=== PATIENT | male | born 1950 | race Caucasian/White ===

== ENCOUNTER 2018-04-26 05:09 | Observation (INO) ==
[2018-04-19 10:00] LABS: HEMATOCRIT 46.1 % (42.0-52.0); HEMOGLOBIN 15.2 g/dL (14.0-18.0); MCH 30.6 PG (27-31); MCV 92.9 FL (81-99); MPV 11.1 FL (7.4-10.4); RBC 4.96 XMIL (4.7-6.1); RDW 12.2 % (11.5-14.5); WBC 8.13 X1000 (4.8-10.8)
[2018-04-19 10:03] LABS: INR 0.95; PROTIME 13.5 Seconds (11.0-16.0)
[2018-04-19 10:04] LABS: PTT 27.3 Seconds (22.3-41.8)
[2018-04-19 10:19] LABS: AGAP 15; BUN 15 mg/dL (8-22); CHLORIDE 103 mmol/L (98-107); COSMO 289; CREATININE 0.9 mg/dL (0.7-1.2); ESTIMATED GFR > 60; GLUCOSE 256 mg/dL (70-104); POTASSIUM 4.4 mmol/L (3.5-5.1); SODIUM 140 mmol/L (136-145); TCO2 22 mmol/L (25-35)
[2018-04-26] MEDS ORDERED: KEFZOL 1 GM/D5W 2 GM/100 ML IVPB ONE (05:36)
[2018-04-26] MEDS ORDERED: PEPCID ONE (05:36)
[2018-04-26] MEDS ORDERED: REGLAN ONE (05:36)
[2018-04-26] MEDS ORDERED: LR 1,000 ML ONE ×3 (05:37→14:16)
[2018-04-26] MEDS ORDERED: SENSORCAINE-MPF 0.5%/EPI 1:200,000 ONE (06:33)
[2018-04-26] MEDS ORDERED: DIPRIVAN 1% ONE (06:33)
[2018-04-26] MEDS ORDERED: B & O 16A SUPP ONE (06:33)
[2018-04-26] MEDS ORDERED: XYLOCAINE-MPF 2% ONE (07:03)
[2018-04-26] MEDS ORDERED: ZEMURON ONE ×2 (07:03→07:39)
[2018-04-26] MEDS ORDERED: BREVIBLOC ONE (07:03)
[2018-04-26] MEDS ORDERED: FENTANYL ONE ×2 (07:10→13:01)
[2018-04-26] MEDS ORDERED: LABETALOL (DOSE) ONE (07:39)
[2018-04-26 07:44] LABS: URINE SOURCE CATH
[2018-04-26 07:47] LABS: BILIRUBIN URINE NEGATIVE (NEGATIVE); BLOOD URINE NEGATIVE (NEGATIVE); COLOR YELLOW; GLUCOSE URINE 500 mg/dL (NEGATIVE); KETONE URINE NEGATIVE (NEGATIVE); LEUKOCYTES URINE NEGATIVE (NEGATIVE); NITRITE URINE NEGATIVE (NEGATIVE); PROTEIN URINE NEGATIVE (NEGATIVE); TURBIDITY URINE CLEAR (CLEAR); UR EPITHELIAL CELLS <10 /HPF (<10); URINE BACTERIA NEGATIVE /HPF; URINE RBC <10 /HPF (<10); URINE WBC <10 /HPF (<10); UROBILINOGEN URINE NORMAL (NORMAL)
[2018-04-26] MEDS ORDERED: EPHEDRINE ONE (11:22)
[2018-04-26] MEDS ORDERED: ZOFRAN ONE (11:31)
[2018-04-26] MEDS ORDERED: HUMULIN R SUBQ ONE (14:00)
[2018-04-26] MEDS ORDERED: ZOFRAN IV PRN (15:15)
[2018-04-26] MEDS ORDERED: LABETALOL IV PRN (15:15)
[2018-04-26] MEDS: HUMULIN R SUBQ SCH ×2 (16:53→21:47)
[2018-04-26] MEDS: KEFZOL 1 GM/D5W 1 GM/50 ML IVPB IV SCH (16:55)
[2018-04-26] MEDS: LR 1,000 ML IV SCH (16:56)
[2018-04-26] MEDS: MORPHINE IV PRN (18:50)
[2018-04-26] MEDS: ZOCOR PO SCH (21:46)
[2018-04-26] MEDS: PERIDEX MT SCH (21:46)
[2018-04-26] MEDS: COLACE PO SCH (21:46)
[2018-04-27] MEDS: KEFZOL 1 GM/D5W 1 GM/50 ML IVPB IV SCH ×2 (00:32→09:03)
[2018-04-27] MEDS: MORPHINE IV PRN ×4 (00:32→19:57)
[2018-04-27] MEDS: NORCO-7.5 PO PRN ×2 (03:11→12:01)
[2018-04-27] MEDS: LR 1,000 ML IV SCH ×2 (03:16→21:20)
--- NOTE | 2018-04-27 04:01 | OPERATIVE NOTE ---
PROCEDURE DATE: 04/26/2018 PREOPERATIVE DIAGNOSES: 1. Elevated prostate-specific antigen. 2. Prostate cancer. POSTOPERATIVE DIAGNOSES: 1. Elevated prostate-specific antigen. 2. Prostate cancer. PROCEDURES PERFORMED: 1. Robotic-assisted laparoscopic prostatectomy. 2. Bilateral pelvic lymph node dissection. 3. Laparoscopic urethral suspension. SURGEON: Dr. Daryl Christiansen. VALUE ENGINEER: Dr. Fredrick Johnston. COMPLICATIONS: None. BLOOD LOSS: 200 mL. DRAINS: 1. An 18-Faroese Cheney catheter. 2. A 19 round drain. SPECIMENS REMOVED: 1. Prostate. 2. Seminal vesicles. 3. Vas deferens. 4. Fat overlying the prostate. 5. Bilateral pelvic lymph nodes. OPERATIVE FINDINGS: The patient had a significant amount of intra-abdominal fat and a relatively small prostate of approximately 20 g. It was difficult to dissect this out due to his pelvic bony anatomy and overlying colonic fat. However, I was able to remove the prostate, seminal vesicles, and vas deferens without issue. Apparently, a preoperative STEVEN did show a firm left-sided prostate. No evidence of any obvious extraprostatic involvement. The patient had bilateral pelvic lymph node dissection with a large amount of specimen sent for analysis. Had a difficult vesicourethral anastomosis, we did have a leak from the right lateral portion of the anastomosis that required placement of a 3-0 V Lock suture for closure. Bladder was recheck with sterile irrigant with no evidence of leak after closure. INDICATIONS FOR PROCEDURE: Mr. Alvarez is a 67-year-old who initially presented to the [facility] after he was diagnosed with a prostatic nodule. The patient was undergoing a colonoscopy and he was found to have a slightly firm area in his prostate. He was examined in the office and found to have a nodule present. He underwent a biopsy and had multiple cores of intermediate and high risk prostate cancer, all present on the left side of the prostate. The patient was counseled on the treatment options and patient elected to proceed with robotic- assisted prostatectomy. He was counseled on the long-term risks of incontinence, erectile dysfunction, bleeding, infection, damage to surrounding structures, prolonged ileus, as well as pain. The risks, benefits, and alternatives of the procedure were discussed with the patient. The patient elected to proceed. DESCRIPTION OF PROCEDURE: After informed consent was obtained, the patient was brought to the operating room and placed on the operating table in the supine position. He received preoperative antibiotics and underwent general anesthesia. He was then placed into a dorsal lithotomy position. He was prepped and draped in the usual sterile fashion. All pressure points were supported and his arms were tucked for stability, at which time a preoperative time-out was performed with all parties in agreement including anesthesia, surgical and nursing staff, at which time an 18-Faroese Cheney catheter was then introduced, returning clear yellow urine, and inflated with 10 mL of sterile water and placed to gravity drainage. A Veress needle was then placed superior to the umbilicus and was connected to a saline-filled syringe to perform a drop test with good flow into the abdomen. There was aspiration of fluid with no evidence of GI contents or blood. This was used to insufflate the abdomen with a pneumoperitoneum of 15 mmHg. Following this, we marked out our trocar sites in a standard prostatectomy fashion. I made an incision in the skin with the scalpel and Bovie electrocautery supraumbilical and introduced a 12 mm trocar, all by inserting the robotic trocars as well as the certified physician's assistant port under laparoscopic visualization. On inspection of the abdomen, it revealed no adhesions and no damage on placement of the trocars or the Veress needle. The patient was then placed into a steep Trendelenburg position and the robotic platform docked. We began by taking down lateral adhesions of the colon to the left lateral pelvic sidewall. Following this, we incised approximately 2 cm above the rectum and into the peritoneum in order to try to identify and isolate the vas deferens. The patient had a significant amount of perirectal and sigmoid colon fat. It was difficult to completely retract back his bowel even with steep Trendelenburg. Ultimately, we tried a fan retractor in the pelvis to see if this would help. However, I was unable to adequately mobilize the colon away. Ultimately, I was able to position our retractors in a way that we could make it down to the vas deferens which was isolated. Cautery was then used judiciously lateral to seminal vesicles in dissection in order to preserve neurovascular bundles both on the right side. A similar type procedure was performed on the left. After complete dissection of the vas deferens and the vessels bilaterally, attention was placed posterior to seminal vesicles and the Denonvilliers was excised until we were able to get down to the perirectal tissues in order to dissect posterior along the plane toward the apex. Once adequate dissection was performed, attention was then placed to the anterior abdominal wall and dropping in the bladder. The medial umbilical ligaments were then cauterized and each side of the bladder was then dropped in order to access the space of Retzius. Once the bladder was dropped, fat was then cleared off the endopelvic fascia, exposing the prostate. We then incised the endopelvic fascia following the contour of the prostate toward the apex, dissecting off the levator muscle. Following this, a the puboprostatic ligaments were then sharply divided. The superficial dorsal vein was controlled with the bipolar electrocautery. The dorsal vein complex was then controlled with a 0 V-Loc suture in a [id number] fashion in anterior periosteal suturing. After this, attention was then placed to dissecting off the bladder neck. This was identified by gently tugging on the Cheney catheter with the balloon in place. Bipolar cautery was then used to incise the bladder neck. The Cheney catheter was then brought up into the field with our fourth arm. This was used to place some anterior traction on the prostate. Good visualization of the posterior bladder neck and the prostate was then seen. It seems like the largest portion of his prostate was the lateral lobes. No evidence of a median lobe was visualized. Following this, incision of the posterior bladder neck was made circumferentially and the prostate was further elevated anterior with the fourth arm. A plane developed between the prostate and the bladder was undertaken. Ultimately, I was able to visualize the vas deferens and seminal vesicles posteriorly. These were brought up into view and used for retraction. Following this, attention was then placed to the neurovascular bundles which were transected using hemoclips, trying to avoid cautery, to peel off the neurovascular bundles posterolateral on each side. We initially started on the left side. We were able to dissect the prostate away from the neurovascular bundles in the rectum posteriorly. No nerve repair was performed on this side due to high-volume, high-risk prostate cancer. Following this, we then addressed our attention to the right side. We were able to perform an intrafascial nerve spare using hemoclips to dissect away our neurovascular bundles. Good mobility was seen on the lateral and posterior prostate. Then attention was then placed to dissecting the apex. The apex was divided with monopolar cautery sharply and periurethral tissues were then sharply excised. Once the prostate was extracted off the urethra, I was able to perform a small amount of urethral sparing. Due to the patient's apical disease on biopsy, it limited how much of the urethra we were able to adequately mobilize. The urethra was then sharply transected coldly with scissors. Following this, the posterior fascia was then excised sharply to completely dissect away the prostate. The prostate was then freely mobilized and placed into an EndoCatch bag with some of the residual fat overlying the prostate. The field was then irrigated and hemostasis appeared to be excellent. Attention was then placed to performing a bilateral pelvic node dissection. Starting on the right, we were able to excise a significant amount of lymphatic tissue overlying the external and internal iliac arteries and vein. We carried this into the anterior abdominal wall and we were able to remove both the node of Falcon as well as the obturator nerve packet. The obturator nerve, artery and vein were all visualized and appeared to be unaffected. Following this, we completely removed all the tissues off the perivesicular fat and this was sent as a specimen. We then moved to the left side. A similar lymph node dissection was performed, removing the lymphatic tissues overlying the iliac arteries and veins, and carrying this all the way down to the obturator nerve and vessels. Following the lymph node dissection, Surgicel was then placed into each defect to decrease the risk of lymphocele and hematoma formation. Following this, a 3-0 V-Loc suture was then used to try to perform a Toan stitch by approximating the perivesical and periurethral tissues together in a running fashion. It was very difficult to see the bladder neck due to the patient's narrow pelvis and limited space near his pubic bone. I obtained a 30 degree lens and used this to assist in placing the 3-0 V-Loc suture into the periurethral and perivesical tissues. This was completed in a running fashion and saved for later laparoscopic urethral suspension. The 30 degree lens offered good visualization of the vesicourethral anastomosis. This was performed by using two 3-0 running V-Loc sutures in a clockwise and counterclockwise fashion. Eventually, this was across the entirety of the midline. Following this, a new 18-Faroese Cheney catheter was then placed. The anastomosis was tested with 120 mL. There was noticed to be a small leak present on the right side of the anastomosis at which time a 3-0 V-Loc suture was then obtained. This defect was then closed. It was rechecked with 120 mL and was watertight with the suture tying to itself. Following this, we placed our attention to the laparoscopic urethral suspension which was performed by threading the previously placed Toan stitch needles through the pubic periosteum. Good support was obtained on the urethra. Posteriorly, the bladder was then irrigated and good hemostasis was visualized. Pressure was decreased down to 3 mmHg with no evidence of active bleeding. Prior to this, a 19 round Az drain was placed through the right lateral port. The robot was then undocked. We then removed our specimen, extending the suprapubic incision to allow removal of the EndoCatch bag. The wound was then copiously irrigated and a 0 PDS suture was then used to close the supraumbilical incision. A 0 Vicryl was then used to close the fascia of the 12 mm certified physician's assistant trocar. Each of the incisions was then injected with Marcaine for a postprocedure block. The wounds were then irrigated once more and then a 4-0 Monocryl suture was used to close subcuticularly all the incisions. A drain stitch was placed around the drain and this was placed to bulb suction. Next, Covidien adhesive agent was then applied to all the trocar sites. The catheter was then placed to gravity drainage with a StatLock in place. The patient was then extubated and was taken to recovery in stable condition. Dr. Johnston was present for all miranda portions of this procedure and acted as a certified physician's assistant for this procedure. DISPOSITION: The patient will be transferred to the PACU and subsequently to the floor for observation. cc: Daryl Christiansen MD [facility]
[2018-04-27] MEDS: HUMULIN R SUBQ SCH ×4 (05:13→22:53)
[2018-04-27 05:18] LABS: MCH 31.1 PG (27-31); MCHC 32.6 g/dL (33-37); MCV 95.6 FL (81-99); MPV 11.5 FL (7.4-10.4); RBC 4.5 XMIL (4.7-6.1); RDW 12.4 % (11.5-14.5); WBC 12.54 X1000 (4.8-10.8)
[2018-04-27] MEDS: SYNTHROID PO SCH ×2 (05:28→06:12)
[2018-04-27 05:40] LABS: AGAP 14; BUN 13 mg/dL (8-22); CHLORIDE 102 mmol/L (98-107); COSMO 287; CREATININE 0.9 mg/dL (0.7-1.2); ESTIMATED GFR > 60; GLUCOSE 239 mg/dL (70-104); POTASSIUM 4.3 mmol/L (3.5-5.1); SODIUM 140 mmol/L (136-145); TCO2 24 mmol/L (25-35)
[2018-04-27] MEDS: PERIDEX MT SCH ×2 (09:03→20:00)
[2018-04-27] MEDS: COLACE PO SCH ×2 (09:03→19:59)
--- NOTE | 2018-04-27 09:09 | PROGRESS NOTE ---
DATE: 04/27/2018 SUBJECTIVE: Postop day 1 from a robotic-assisted laparoscopic prostatectomy with bilateral pelvic lymph node dissection and urethral suspension. Overall, the patient seems to be doing relatively well. His pain seems to be well controlled on oral pain medication. He was up to the side of the bed this morning. Denies ambulating as of yet. He is having good urine through his urethral catheter and is clear yellow. Denies having flatus, nausea or vomiting. The patient has had minimal p.o. intake mostly just water. OBJECTIVE: Vital signs: Temperature 99.1 degrees, pulse rate 91, blood pressure 102/53. Oxygen saturation 96%. General: No acute distress resting comfortably in bed. Alert and oriented x3. Respiratory: Good respiratory effort with no audible wheezing overall. The patient is wearing nasal cannula on 2 L. Cardiovascular: No evidence of lower extremity edema. No evidence of tachycardia. Abdomen: Soft, nontender, and mild distention. No palpable masses. : No suprapubic tenderness. Urethral catheter in place with clear yellow urine. No evidence of any clots in the chamber. LIDIA drain in place with small amount of serosanguineous fluid. LABORATORY: White blood cell count 12.54, hemoglobin 14, hematocrit 43, and platelets 127,000. Sodium 140, potassium 4.3, chloride 102, bicarb 24, BUN 13, creatinine 0.9, and glucose 239. Fluid LIDIA creatinine 1.0. ASSESSMENT AND PLAN: Mr. Alvarez is a 67-year-old with type 2 diabetes, hypertension, hyperlipidemia, hypothyroidism, who was recently diagnosed with high-grade prostate cancer and is postop day 1 from a robotic-assisted laparoscopic prostatectomy with bilateral pelvic lymph node dissection, and urethral suspension. Overall, the patient seems to be doing relatively well. He has complained a little bit of pain this morning that seems to be managed with oral pain medication. The patient has had minimal p.o. intake. Denies any nausea, vomiting, or sensation of abdominal distention. All of his labs seem to be within normal limits. His LIDIA creatinine was 1.0 this morning. We will plan to remove his LIDIA drain today. Encouraged him to be ambulatory, and up out of bed and tolerating diet as able. I encouraged him to drink fluids and encouraged him to take just oral pain medication if he develops pain. We will continue with oral pain medication and will add Robaxin to see if this helps with his muscle discomfort and continue with Senna and Colace. We will start anticoagulation with heparin t.i.d. Continue his home medications and monitoring for elevated fingerstick blood sugars. Continue urethral catheter to gravity drainage. cc: Daryl Christiansen MD [facility]
[2018-04-27] MEDS: ROBAXIN PO SCH ×3 (10:44→18:56)
[2018-04-27] MEDS: HEPARIN SUBQ SCH ×3 (12:01→20:00)
[2018-04-27] MEDS: SENOKOT PO SCH ×2 (15:22→20:00)
[2018-04-27] MEDS: ZOCOR PO SCH (20:00)
[2018-04-28] MEDS: MORPHINE IV PRN (01:19)
[2018-04-28] MEDS: HUMULIN R SUBQ SCH (04:48)
[2018-04-28] MEDS: HEPARIN SUBQ SCH (04:49)
[2018-04-28 05:50] LABS: HEMATOCRIT 39.8 % (42.0-52.0); HEMOGLOBIN 12.9 g/dL (14.0-18.0); MCH 31.5 PG (27-31); MCHC 32.4 g/dL (33-37); MCV 97.3 FL (81-99); MPV 11.8 FL (7.4-10.4); RBC 4.09 XMIL (4.7-6.1); RDW 12.2 % (11.5-14.5); WBC 10.27 X1000 (4.8-10.8)
[2018-04-28] MEDS: LR 1,000 ML IV SCH (05:56)
[2018-04-28 06:20] LABS: AGAP 12; BUN 10 mg/dL (8-22); CALCIUM 8.8 mg/dL (8.8-10.2); CHLORIDE 102 mmol/L (98-107); COSMO 285; CREATININE 0.8 mg/dL (0.7-1.2); ESTIMATED GFR > 60; GLUCOSE 223 mg/dL (70-104); POTASSIUM 3.7 mmol/L (3.5-5.1); SODIUM 140 mmol/L (136-145); TCO2 26 mmol/L (25-35)
[2018-04-28] MEDS: SYNTHROID PO SCH (06:20)
--- NOTE | 2018-04-28 06:55 | PROGRESS NOTE ---
DATE: 04/28/2018 SUBJECTIVE: Postop Day 2 from a robotic-assisted laparoscopic prostatectomy with bilateral pelvic lymph node dissection and urethral suspension. No acute events overnight. The patient did have some abdominal distention yesterday, but was tolerating a diet. He denies any nausea or vomiting this morning. He states his pain has been better controlled. He has been up to the chair for an hour and a half last night. He denies any fevers or chills and states that he feels like he has been breathing better. Remains on nasal cannula, but this has been weaned to 1.5 L at this time. OBJECTIVE: Temperature 98, heart rate 93, blood pressure 143/85, oxygen saturation 97% on 1.5 L of nasal cannula. General: No acute distress. Resting comfortably in bed. Alert and oriented x3. Respiratory: Good respiratory effort without any audible wheezing or rales. No increased work of breathing. Cardiovascular: No lower extremity edema. Abdomen is soft, nontender, with decreased distention. : No suprapubic tenderness. Urethral catheter in place with clear yellow urine. Skin: All incisions are intact. No evidence of any erythema. Covered with Dermabond. LABORATORY DATA: White blood cell count 10.27, hematocrit 39.8, hemoglobin 12.9 , platelets 103,000. Sodium 140, potassium 3.7, chloride 102, bicarb 26. BUN 10, creatinine 0.8, glucose 223. ASSESSMENT AND PLAN: Mr. Alvarez is a 67-year-old with type 2 diabetes, hypertension, hyperlipidemia, hypothyroidism. He was recently diagnosed with high-grade prostate cancer and is postop day 2 from robotic-assisted laparoscopic prostatectomy with bilateral pelvic lymph node dissection and urethral suspension. Overall, the patient seems to be improving overnight. His pain is better controlled. His respiratory status has improved. He did cough up some sputum this morning early and states that it did not cause any abdominal pain. He was up to the chair for an hour and a half last night. I encouraged him to be ambulatory today, walking the hallways, and try to wean his oxygen. Continue oral pain medication and all of his home medications. We will continue to monitor his fingerstick blood sugars and continue urethral catheter to gravity drainage. We will continue with Senna and Colace as we await bowel function. I think if he becomes more ambulatory, it will help him pass some gas as his abdomen has already decreased in distention, and he is tolerating a diet. Continue Heparin. cc: Daryl Christiansen MD [facility]
[2018-04-28 07:31] VITALS: BP 154/81
[2018-04-28] MEDS: SENOKOT PO SCH (09:51)
[2018-04-28] MEDS: ROBAXIN PO SCH (09:52)
[2018-04-28] MEDS: PERIDEX MT SCH (09:52)
[2018-04-28] MEDS: COLACE PO SCH (09:52)
[2018-04-28] MEDS: NORCO-7.5 PO PRN (09:59)
== END 2018-04-28 10:17 | disposition home or self-care (01) ==
LOC: 4N 05:09 → OR 05:09
PROVIDERS: ADMIT Urology; ATTEND Urology
CPT/HCPCS: 80048; 81001; 82570; 82948; 85027; 85610; 85730; 86850; 86900; 86901; 88307; 88309; 88313; 94761; 94799; A9270; J0690; J1644; J2270; J2405; J3010; J7120; S2900; XXXXX